=== PATIENT | male | born 1965 | race Caucasian/White ===

== ENCOUNTER 2017-01-25 19:29 | Emergency (ER) | payer OTHER ==
[~2017-01-25 19:29] MED LIST: ASPI81 PO; METF500T7 PO
== END 2017-01-25 20:52 | disposition left against medical advice (07) ==
LOC: EMS 19:30
DX: M25.511 Pain in right shoulder (principal); E11.9 Type 2 diabetes mellitus without complications; F17.210 Nicotine dependence, cigarettes, uncomplicated; Z53.21 Procedure and treatment not carried out due to patient leaving prior to being seen by health care provider

== ENCOUNTER 2017-12-01 20:23 | Emergency (ER) | payer OTHER ==
[~2017-12-01] VITALS: Ht 170.2 cm; Wt 99.0 kg
[2017-12-01] MEDS ORDERED: PIOG30TA10 PO (20:58)
[2017-12-01] MEDS ORDERED: METF500T6 PO (20:58)
[2017-12-01] MEDS ORDERED: LISI-661 PO (20:58)
[2017-12-01] MEDS ORDERED: AMLO-511 PO (20:58)
[2017-12-01] MEDS ORDERED: SIMV-261 PO (20:58)
[2017-12-01 21:02] LABS: GLUCOSE,POINT OF CARE 480 MG/DL (70-110)
[2017-12-01] MEDS ORDERED: HEPARIN SODIUM,PORCINE 5,000 UNITS/ML VIAL IVP ONE (21:30)
[2017-12-01] MEDS ORDERED: SODIUM CHLORIDE 0.9% 1,000 ML IV ONE ×2 (21:30→22:00)
[2017-12-01 21:50] LABS: BASOPHILS % (AUTO) 0.4 % (0.0-2.0); EOSINOPHILS % (AUTO) 1.3 % (1.0-6.0); HEMATOCRIT 44.3 % (41-53); HEMOGLOBIN 15.1 g/dL (13.5-17.5); LYMPHOCYTES # (AUTO) 3.3 K/uL (1.0-4.8); LYMPHOCYTES % (AUTO) 28.5 % (22.0-44.0); MEAN CORPUSCULAR HEMOGLOBIN 28.3 pg (26.0-34.0); MEAN CORPUSCULAR HGB CONC 34.1 G/dL (31.0-37.0); MEAN CORPUSCULAR VOLUME 83 fL (80-100); MONOCYTES # (AUTO) 0.7 K/uL (0.1-1.0); MONOCYTES % (AUTO) 6.4 % (2.0-9.0); NEUTROPHILS # (AUTO) 7.4 K/uL (1.8-7.7); NEUTROPHILS % (AUTO) 63.4 % (40.0-70.0); PLATELET COUNT (AUTO) 237 K/uL (150-450); RED BLOOD CELL COUNT(AUTO) 5.33 MIL/uL (4.50-5.90); RED CELL DISTRIBUTION WIDTH 13.7 % (11.5-14.5)
[2017-12-01] MEDS ORDERED: ONDANSETRON HCL 4 MG/2 ML VIAL IVP ONE (22:00)
[2017-12-01] MEDS ORDERED: MORPHINE SULFATE 4 MG/ML SYRINGE IVP ONE (22:00)
[2017-12-01 22:01] LABS: INR 0.9 (0.9-1.1); PROTHROMBIN TIME 9.8 SEC (9.4-11.6)
[2017-12-01 22:09] LABS: ALBUMIN 3.4 g/dL (3.4-5.0); BILIRUBIN,TOTAL 0.2 mg/dL (0.1-1.0); CALCIUM, TOTAL 9.2 mg/dL (8.8-10.5); CREATININE 1.6 mg/dL (0.60-1.30); POTASSIUM 4.7 mmol/L (3.5-5.1); TOTAL PROTEIN, SERUM 7.3 g/dL (6.4-8.2)
[2017-12-01 22:22] LABS: GLUCOSE,POINT OF CARE 443 MG/DL (70-110)
[2017-12-01] MEDS ORDERED: INSULIN REGULAR, HUMAN 100 UNITS/ML IVP ONE (22:30)
[2017-12-01 23:23] VITALS: BP 154/81
[2017-12-01 23:32] LABS: GLUCOSE,POINT OF CARE 161 MG/DL (70-110)
== END 2017-12-02 00:41 | disposition short-term general hospital (02) ==
LOC: EMS 20:24
DX: I70.201 Unspecified atherosclerosis of native arteries of extremities, right leg (principal); E11.65 Type 2 diabetes mellitus with hyperglycemia; Z79.4 Long term (current) use of insulin; Z79.82 Long term (current) use of aspirin; Z98.890 Other specified postprocedural states; Z87.891 Personal history of nicotine dependence; Z79.899 Other long term (current) drug therapy
CPT/HCPCS: 36415; 80053; 82962; 85025; 85610; 85730; 93926; 96361; 96374; 96375; 99285; J1644; J1815; J7030

== ENCOUNTER 2019-10-20 00:53 | Emergency (ER) | payer OTHER ==
[~2019-10-20] VITALS: Ht 170.2 cm; Wt 106.8 kg
[~2019-10-20 00:53] MED LIST changes: +AMLO5TAB9 PO; +ASPI-728 PO; -ASPI81 PO; +LISI-661 PO; +METF-960 PO; -METF500T7 PO; +PIOG30TA10 PO; +SIMV-261 PO
[2019-10-20 01:00] VITALS: BP 150/96
== END 2019-10-20 01:15 | disposition left against medical advice (07) ==
LOC: EMS 00:53
DX: Z02.89 Encounter for other administrative examinations (principal); Z53.21 Procedure and treatment not carried out due to patient leaving prior to being seen by health care provider

== ENCOUNTER 2020-04-11 17:27 | Emergency (ER) | payer OTHER ==
[~2020-04-11] VITALS: Ht 170.2 cm; Wt 102.3 kg
[~2020-04-11 17:27] MED LIST changes: +AMLO-257 PO; -AMLO5TAB9 PO
[2020-04-11 22:12] LABS: GLUCOSE,POINT OF CARE 121 MG/DL (70-110)
[2020-04-11 22:13] VITALS: BP 119/63
== END 2020-04-11 22:22 | disposition home or self-care (01) ==
LOC: EMS 17:28
DX: E11.9 Type 2 diabetes mellitus without complications (principal); Z87.891 Personal history of nicotine dependence; Z79.84 Long term (current) use of oral hypoglycemic drugs; Z79.82 Long term (current) use of aspirin